=== PATIENT | female | born 1990 | race Caucasian/White ===

== ENCOUNTER 2019-05-31 06:47 | Day surgery (SDC) | payer OTHER ==
[2019-05-30 13:36] VITALS: BMI 27.4
--- NOTE | 2019-05-30 14:37 | PREOP ---
DATE OF ADMISSION: 05/31/2019 DATE OF DICTATION: 05/30/2019 ADMISSION DIAGNOSES: Chronic sinusitis, inferior turbinate hypertrophy, deviated septum, right oral-antral fistula. HISTORY OF PRESENT ILLNESS: This 29-year-old female has a history of dental problems. She was in the process of having restorative surgery in her right maxilla. She had had a prior root canal, but because of dental infection, required extraction. She states that a sinus lift was commenced, in anticipation of a dental implant in the right maxilla. The sinus lift procedure was not completed, because an infection was encountered during the procedure. She was treated with amoxicillin. She had pain, and swelling, as well as a bad taste in her mouth. When she touched the right face, she felt something coming out of a hole in her right upper gum. 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 Since she had not cleared up, a CT scan of the paranasal sinuses was performed, which demonstrates chronic sinusitis especially in the right maxillary, but also in the left maxillary, as well as both ethmoid sinuses. In addition, there is some deviation of the septum and inferior turbinate hypertrophy. She is now admitted for endoscopic sinus surgery, possible septoplasty, and possible inferior turbinate surgery. There is also large middle turbinate sandra bullosa and these will also be resected endoscopically. PAST MEDICAL HISTORY: Patient's primary care provider is at [facility]. She has had a history of asthma in the past, but this has been stable for quite some time. She also reports prior , and prior neck surgery, and underwent anesthesia without reported problems. She does have history of depression and a remote history of tuberculosis which has been treated. PRESENT MEDICATIONS: Include ketorolac and quetiapine fumarate. ALLERGIES: There are no allergies to medications known. She is a nonsmoker. Her bleeding history is negative and family history is negative for bleeding or anesthesia problems. PHYSICAL EXAMINATION: General: Patient is a well-developed female in no distress. HEENT: Head is normal. Eyes are clear. Ears are unremarkable. The nose has turbinate hypertrophy and some mild deviation of the septum. There is no active, purulent drainage from the middle meatuses. The oral cavity does show missing teeth and an area of suspected oral-antral fistula. DATA: Preoperative labs are pending. PT and PTT are within normal limits. Beta hCG is negative. CT scan of the paranasal sinuses performed at [facility] on March 23, 2019, showed moderate circumferential mucosal thickening in the right maxillary sinus, approximately 1 cm in thickness, a small air-fluid level was present; there is thinning of the alveolus along the sinus and a defect in the lateral wall of the right maxillary sinus just above the alveolus; there is also bilateral ethmoid sinus opacification; the sphenoid and frontal sinuses are clear; there is mild swelling of the left maxillary sinus; there is significant sandra bullosa of the middle turbinates bilaterally with some partial opacification on the right; there is mild deviation of the septum to the right. IMPRESSION: Oral-antral fistula, right side; chronic maxillary sinusitis, which is preventing healing of the fistula; as well as ethmoid sinusitis. Deviated septum and large sandra bullosa bilaterally and inferior turbinates. PLAN: Endoscopic sinus surgery to address maxillary and ethmoid sinuses, possible septoplasty, resection of sandra bullosa bilaterally, and possible inferior turbinate surgery. INFORMED CONSENT: Patient understands the indications, alternatives, nature, risks, and benefits of proposed surgery; potential complications, including but not limited to anesthesia, bleeding, infection, recurrence of the sinusitis, numbness, hole in the septum, reduced sense of smell, eye or brain injury, and additional treatment possibly required for the oral-antral fistula were discussed in detail. She understands and accepts these risks and wishes to proceed with surgery. Questions were answered fully. KIERA ULRICH M.D. [id number]
[2019-05-31] MEDS ORDERED: MIDAZOLAM HCL 2 MG/2 ML SINGLE DOSE VIAL ONE ×2 (07:08)
[2019-05-31] MEDS ORDERED: EPHEDRINE SULFATE/0.9% NACL/PF 50 MG/10 ML SYRINGE NR ONE (07:08)
[2019-05-31] MEDS ORDERED: DEXAMETHASONE SOD PHOSPHATE 4 MG/1 ML VIAL ONE (07:08)
[2019-05-31] MEDS ORDERED: SUCCINYLCHOLINE CHLORIDE 200 MG/10 ML SYRINGE ONE (07:08)
[2019-05-31] MEDS ORDERED: PROPOFOL 20 ML ONE ×2 (07:08)
[2019-05-31] MEDS ORDERED: LIDOCAINE HCL 4% PRESERVE-FREE 5 ML AMP ONE (07:12)
[2019-05-31] MEDS ORDERED: ROCURONIUM BROMIDE 50 MG/5 ML SYRINGE ONE (07:18)
[2019-05-31] MEDS ORDERED: LIDOCAINE 1%-EPI 1:100,000 30 ML MDV IJ ONE (07:38)
[2019-05-31] MEDS ORDERED: oxyCODONE HCL 5 MG TABLET PO PRN ×2 (07:40)
[2019-05-31] MEDS ORDERED: ONDANSETRON 4 MG/2 ML VIAL IVPUSH PRN (07:40)
[2019-05-31] MEDS ORDERED: ACETAMINOPHEN INJECTION 100 ML IVPB ONE (07:44)
[2019-05-31] MEDS ORDERED: LACTATED RINGERS SOLUTION 1,000 ML IV SCH (07:45)
--- NOTE | 2019-05-31 07:52 | HP ---
History & Physical Update - History History: No Change - Physical Physical: No Change - Assessment Assessment: No Change - Plan Plan: No Change
[2019-05-31] MEDS ORDERED: COCAINE HCL 4% TOPICAL SOLUTION 4 ML BOTTLE TP ONE ×2 (08:24→08:33)
[2019-05-31] MEDS ORDERED: LIDOCAINE 1%/EPI 1:100000 (20 ML MULTI DOSE VIAL) IJ ONE ×2 (08:36→08:54)
[2019-05-31] MEDS ORDERED: NEOSTIGMINE METHYLSULFATE 0.5 MG/ML - 10 ML MDV ONE (09:06)
[2019-05-31] MEDS ORDERED: GLYCOPYRROLATE 0.2 MG/1 ML VIAL ONE (09:06)
[2019-05-31] MEDS ORDERED: SODIUM CHLORIDE 0.9% P/F 10 ML VIAL IJ ONE (09:34)
[2019-05-31] MEDS ORDERED: ceFAZolin SODIUM 1 GM VIAL IVPB ONE (09:34)
[2019-05-31] MEDS ORDERED: ceFAZolin SODIUM 1 GM VIAL ONE ×2 (09:34)
--- NOTE | 2019-05-31 10:30 | OP ---
Operative Note - Note: Operative Date: 05/31/19 (12506) Pre-Operative Diagnosis: chronic sinusitis maxillary and ethmoid, bilateral sandra bullosa, bilateral inferior turbinate hypertrophy Operation: bilateral endoscopic ethmoidectomy, anterior and posterior, bilateral endoscopic maxillary antrostomy with removal of tissue, bilateral endoscopic resection of sandra bullosa, inferior turbinate outfracture ( bilateral) and mural cauterization (right), image guidance Findings: bilateral sandra bullosa, ethmoid and maxillary sinusitis, especially right maxillary with pus and severely swollen mucosa; inferior turbinate hypertrophy Implants: none Post-Operative Diagnosis: Same as Pre-op Surgeon: Piter Jones Anesthesiologist/[employer] SUPERVISOR: Karrie Munoz Anesthesia: General Specimens Removed: right middle meatal culture, left middle turbinate, left ethmoid tissue, right middle turbinate, right ethmoid and maxillary tissue; right and left ethmoid tissue (shavings) Estimated Blood Loss (mls): 75 Blood Volume Replaced (mls): 0 Operative Report Dictated: Yes
[2019-05-31 12:13] VITALS: TEMP 97
[2019-05-31] MEDS ORDERED: oxyCODONE HCL 5 MG TABLET ONE (13:23)
[2019-05-31 16:00] VITALS: BP 107/53; PULSE 60
--- NOTE | 2019-06-01 10:27 | OP ---
DATE OF OPERATION: 05/31/2019 PREOPERATIVE DIAGNOSES: Chronic ethmoid and maxillary sinusitis, bilateral sandra bullosa, bilateral inferior turbinate hypertrophy. POSTOPERATIVE DIAGNOSES: Chronic ethmoid and maxillary sinusitis, bilateral sandra bullosa, bilateral inferior turbinate hypertrophy. PROCEDURE: Bilateral endoscopic ethmoidectomy, anterior and posterior; bilateral endoscopic maxillary antrostomy with removal of tissue; bilateral endoscopic resection of sandra bullosa; inferior turbinate outfracture bilaterally; mural cauterization of turbinate, right side; image guidance. SURGEON: Piter Jones MD ANESTHESIOLOGIST: Karrie Munoz MD ANESTHESIA: General via endotracheal tube. INDICATIONS: This 29-year-old female has had right maxillary dental problem with oroantral fistula following extraction. She has right maxillary discomfort and purulent drainage coming through the gum. Examination demonstrated turbinate hypertrophy. CT scan demonstrated chronic ethmoid and maxillary sinusitis, worse on the right side, as well as bilateral sandra bullosa obstructing the sinus drainage pathways and some inferior turbinate hypertrophy. She is now brought to surgery for treatment. FINDINGS: Chronic sinusitis, ethmoid and maxillary, particularly the right maxillary with purulence. Bilateral sandra bullosa with greater inflammation on the right. Inferior turbinate hypertrophy. DESCRIPTION OF PROCEDURE: Patient was brought to the operating room and placed on the operating table in supine position. General endotracheal anesthesia was induced to a satisfactory level. She was prepped and draped in the usual fashion for surgery. The nose was packed with cocaine 4% on pledgets. Patient's CT scan data was uploaded into the [employer] image guidance system. She was registered, and the image guidance was used intermittently throughout the case to identify anatomic landmarks and guide dissection. The pledgets were removed, and endoscopy was performed. Turbinate hypertrophy was found, and pus was seen with obstruction of the right middle meatus. Culture was obtained from the purulent drainage from the right middle meatus. Lidocaine with epinephrine was infiltrated in the bilateral middle turbinates and lateral nasal hoskins. Cocaine 4% was packed within the middle meatuses bilaterally. Attention was first turned toward the left paranasal sinuses. The sandra bullosa was incised with a sickle knife and then the lateral lamella excised with the straight and curved endoscopic scissors. A turbinate remnant was sent to Pathology. Some cauterization was performed for hemostasis. The uncinate process was removed anterior, and then, posterior ethmoid sinus dissection was carefully performed using ethmoid forceps and the microdebrider with image guidance. The lamina papyracea and the fovea ethmoidalis were preserved. The natural ostium was identified and enlarged using the forward and reverse cutting forceps. The anterior of the maxillary sinus was seen, and there was minimal edema found. Attention was then turned toward the right paranasal sinuses. The sandra bullosa was then cauterized and incised. The lateral lamella was removed. Significantly inflamed tissue was encountered. The medial wall of the maxillary sinus was bulging. This was sounded with the ball-tip seeker, and the middle meatal antrostomy was created using the ethmoid forceps and the microdebrider. Severely inflamed tissue was encountered with oozing requiring cauterization and some temporary packing for hemostasis. Significant purulence was encountered which was then suctioned. The sinus was irrigated copiously with saline and then suctioned dry. Ethmoidectomy was then performed using the ethmoid forceps and the [employer] microdebrider. Again, the lamina papyracea and the fovea ethmoidalis were preserved. Final inspection demonstrated open ethmoid and maxillary sinuses. The sandra bullosae had been resected. Inferior turbinates were then therapeutically outfractured, and the right side, being larger, had mural cauterization performed with the suction cautery. Bilateral NasoPore packing was placed within each ethmoid cavity. Folded Telfa gauze with bacitracin was placed in the inferior nasal cavities. Patient tolerated the procedure well. She was then awakened from general anesthesia and transferred to the PACU in stable condition. Estimated blood loss was 75 mL. She received crystalloid at the end of the procedure. Specimens included right middle meatal culture, left middle turbinate, left ethmoid tissue, right middle turbinate, right ethmoid and maxillary sinus tissue which were all sent to Pathology for routine studies. There were no complications. PITER JONES M.D. [id number]
--- NOTE | 2019-06-05 15:27 | PATH ---
Surgical Pathology Report Patient Name: CRISTOFER BUSBY [facility]. Rec. #: [id number] /Age/Gender: 1990 (Age: 29) / F Account: [id number] Location: [facility] SURGICAL Taken: 05/31/2019 Received: 05/31/2019 Reported: 06/05/2019 Physicians: Piter Jones M.D. Specimen(s) Received A: LEFT MIDDLE TURBINATE B: ETHMOID TISSUE LEFT C: RIGHT MIDDLE TURBINATE D: RIGHT ETHMOID TISSUE E: BILATERAL ETHMOID SHAVINGS 1 F: BILATERAL ETHMOID SHAVINGS 2 Clinical History Chronic sinusitis, turbinate hypertrophy, oral antral fistula Final Diagnosis A. MIDDLE TURBINATE, LEFT, ENDOSCOPIC RESECTION: BENIGN RESPIRATORY MUCOSA WITH CHRONIC SINUSITIS AND BONE. B. ETHMOID TISSUE, LEFT, ENDOSCOPIC ETHMOIDECTOMY: BENIGN RESPIRATORY MUCOSA AND BONE. C. MIDDLE TURBINATE, RIGHT, ENDOSCOPIC RESECTION: BENIGN RESPIRATORY MUCOSA WITH CHRONIC SINUSITIS AND BONE. D. ETHMOID TISSUE, RIGHT, ENDOSCOPIC ETHMOIDECTOMY: BENIGN RESPIRATORY MUCOSA WITH CHRONIC SINUSITIS AND BONE. E. ETHMOID SHAVINGS 1, BILATERAL, ENDOSCOPIC SINUS SURGERY: FRAGMENTS OF RESPIRATORY EPITHELIUM, MIXED INFLAMMATORY INFILTRATE, AND BLOOD. F. ETHMOID SHAVINGS 2, BILATERAL, ENDOSCOPIC SINUS SURGERY: FRAGMENTS OF RESPIRATORY EPITHELIUM, MIXED INFLAMMATORY INFILTRATE, AND BLOOD. Electronically Signed Rachel Lakhani M.D. Gross Description A. Received in formalin labeled "left middle turbinate" is a 1.6 x 1.4 x 0.2 cm blandon portion of cartilage. The specimen is serially sectioned and entirely submitted in one cassette. B. Received in formalin labeled "left ethmoid tissue," is a 1.3 x 1.0 x 0.2 cm aggregate of blandon fragments of soft tissue and cartilage. The specimen is submitted in toto in one cassette. C. Received in formalin labeled "right middle turbinate" is a 1.2 x 0.9 x 0.2 cm blandon portion of cartilage. The specimen is trisected and entirely submitted in one cassette. D. Received in formalin labeled "right ethmoid tissue," is a 1.1 x 0.8 x 0.1 cm aggregate of blandon, irregular portions of soft tissue and possible cartilage. The specimen is entirely submitted in one cassette. E. Received in formalin labeled "bilateral ethmoid shavings," is a 6.0 x 4.0 x 0.4 cm aggregate of blandon-red soft tissue fragments admixed with blood clot. A representative phlebotomy services portion is submitted in one cassette. F. Received in formalin labeled "bilateral ethmoid shavings," is a 4.0 x 3.5 x 0.4 cm aggregate of blandon and brown soft tissue fragments admixed with blood clot. A representative phlebotomy services portion is submitted in one cassette. 06/01/2019 [facility]06/01/2019
== END 2019-05-31 15:35 | disposition home or self-care (01) ==
LOC: JASU-SURG 06:47
PROVIDERS: ATTEND Otolaryngology
PROC: 09BU8ZZ Excision of Right Ethmoid Sinus, Via Natural or Artificial Opening Endoscopic (ICD-10-PCS; 2019-05-31)
PROC: 09SL0ZZ Reposition Nasal Turbinate, Open Approach (ICD-10-PCS; 2019-05-31)
PROC: 09BV8ZZ Excision of Left Ethmoid Sinus, Via Natural or Artificial Opening Endoscopic (ICD-10-PCS; principal; 2019-05-31 08:00)
DX: J32.2 Chronic ethmoidal sinusitis (principal); J32.0 Chronic maxillary sinusitis; J34.9 Unspecified disorder of nose and nasal sinuses; J34.3 Hypertrophy of nasal turbinates
CPT/HCPCS: 84703; 87070; 87075; 87077; 87186; 87205; 88304-TC; 94760; J0131

== ENCOUNTER 2020-09-06 20:05 | Emergency (ER) | payer OTHER ==
[2020-09-06 20:21] VITALS: TEMP 98; BMI 31.1
[2020-09-06] MEDS ORDERED: ACETAMINOPHEN 500 MG TABLET (FP) PO ONE (21:45)
[2020-09-06] MEDS ORDERED: METOCLOPRAMIDE HCL INJECTION 10 MG/2 ML VIAL IVPUSH ONE (21:45)
[2020-09-06] MEDS ORDERED: SODIUM CHLORIDE 0.9% 500 ML INFUS.BAG IV ONE (21:45)
[2020-09-06] MEDS ORDERED: METOCLOPRAMIDE HCL INJECTION 10 MG/2 ML VIAL ONE (21:52)
[2020-09-06] MEDS ORDERED: ACETAMINOPHEN 500 MG TABLET (FP) ONE (21:57)
[2020-09-06 22:50] LABS: BASO % 0.3 % (0-2.0); HEMATOCRIT 36.6 % (32.4-45.2); HEMOGLOBIN 12.2 GM/dL (10.7-15.3); LYMPH % 23.9 % (8-40); MCH 30.6 pg (25.7-33.7); MCHC 33.3 g/dl (32.0-36.0); MEAN CELL VOLUME 91.8 fl (80-96); MEAN PLT VOLUME 9.5 fl (7.5-11.1); MONO % 7.1 % (3.8-10.2); NEUT % 67.7 % (42.8-82.8); PLATELET COUNT 195 K/MM3 (134-434); RBC 3.98 M/mm3 (3.60-5.2); RDW 12.7 % (11.6-15.6); WHITE BLOOD COUNT 10.6 K/mm3 (4.0-10.0)
[2020-09-06 23:09] LABS: POTASSIUM 4.1 mmol/L (3.5-5.1)
[2020-09-06 23:13] LABS: ALBUMIN 3.8 g/dl (3.4-5.0); BLOOD UREA NITROGEN 9.9 mg/dL (7-18); CALCIUM 9.3 mg/dL (8.5-10.1)
[2020-09-06 23:16] LABS: CREATININE 0.7 mg/dL (0.55-1.3)
[2020-09-06 23:18] LABS: BILIRUBIN,TOTAL 0.4 mg/dL (0.2-1); TOT PROT 7.4 g/dl (6.4-8.2)
[2020-09-07 04:29] VITALS: PULSE 80
[2020-09-07 04:36] VITALS: BP 93/62
== END 2020-09-07 04:36 | disposition home or self-care (01) ==
LOC: JER 20:05
PROC: 3E033GC Introduction of Other Therapeutic Substance into Peripheral Vein, Percutaneous Approach (ICD-10-PCS; principal; 2020-09-06)
PROC: 3E033GC Introduction of Other Therapeutic Substance into Peripheral Vein, Percutaneous Approach (ICD-10-PCS; 2020-09-06)
DX: G43.909 Migraine, unspecified, not intractable, without status migrainosus (principal); J32.9 Chronic sinusitis, unspecified
CPT/HCPCS: 36415; 70450-TC; 70496-TC; 70498-TC; 80053; 84703; 85025; 99285-25; Q9967

== ENCOUNTER 2021-05-24 12:02 | Emergency (ER) | payer OTHER ==
[2021-05-24 12:35] VITALS: BP 119/80; PULSE 87; TEMP 97.5; BMI 32.9
[2021-05-24] MEDS ORDERED: ALBUTEROL SO4 0.083% IH SOL 2.5 MG/3 ML VIAL.NEB. NEB SCH (14:00)
[2021-05-24] MEDS ORDERED: ALBUTEROL SO4 2.5/IPRATROPIUM 0.5 INH SOL 3 ML VIAL.NEB. NEB ONE (15:45)
[2021-05-24] MEDS: ALBUTEROL SO4 2.5/IPRATROPIUM 0.5 INH SOL 3 ML VIAL.NEB. NEB SCH (15:48)
== END 2021-05-24 17:10 | disposition home or self-care (01) ==
LOC: JER 12:02
PROC: 3E0F7GC Introduction of Other Therapeutic Substance into Respiratory Tract, Via Natural or Artificial Opening (ICD-10-PCS; principal; 2021-05-24)
DX: J45.21 Mild intermittent asthma with (acute) exacerbation (principal)
CPT/HCPCS: 99283-25